=== PATIENT | male | born 1965 | race Caucasian/White ===

== ENCOUNTER 2021-11-21 12:47 | Emergency (ER) | payer SELFPAY ==
[~2021-11-21] VITALS: Ht 193 cm; Wt 95.3 kg
[2021-11-21 12:52] VITALS: BP 152/96
[2021-11-21] MEDS ORDERED: LEVO0.1211 PO (13:14)
--- NOTE | 2021-11-21 13:21 | NUR ---
PATIENT BIB [employer]. PATIENT EXAMINED BY DR. WATKINS. PATIENT MEDICALLY CLEARED AND RELEASED IN CUSTODY IN STABLE CONDITION. ORIGINAL PRE-BOOK FORM GIVEN TO OFFICER [facility] #[id number].
== END 2021-11-21 13:21 ==
LOC: MED 12:47
DX: R00.2 Palpitations (principal); E03.9 Hypothyroidism, unspecified; Z72.89 Other problems related to lifestyle
CPT/HCPCS: 99283